=== PATIENT | female | born 1975 | race Caucasian/White ===

== ENCOUNTER 2019-11-09 19:22 | Emergency (ER) | payer OTHER ==
[~2019-11-09] VITALS: Ht 157.5 cm; Wt 74.8 kg
[~2019-11-09 19:22] MED LIST: LEVOTHROID50 MCG PO; bcp
[2019-11-09 21:01] VITALS: BP 145/81
== END 2019-11-09 21:02 | disposition home or self-care (01) ==
LOC: M.ERS 19:22
DX: S80.812A Abrasion, left lower leg, initial encounter (principal); E03.9 Hypothyroidism, unspecified; M79.7 Fibromyalgia; M06.9 Rheumatoid arthritis, unspecified; M32.9 Systemic lupus erythematosus, unspecified; W54.0XXA Bitten by dog, initial encounter; Y93.89 Activity, other specified; Y92.89 Other specified places as the place of occurrence of the external cause; Y99.8 Other external cause status

== ENCOUNTER → 2019-11-11 | Outpatient (CLI) | payer OTHER ==
[2019-11-11 12:15] VITALS: BP 118/75
--- NOTE | 2019-11-11 14:39 | NUR ---
ARRIVED AMBULATORY. MADE SELF COMFORTABLE IN RECLINER. DENIES FEVER OR ANY ADVERSE REACTION TO PRIOR INJECTION OF SAME. INJECTION COMPLETED AND TOELRATED WELL. DENIES QUESTIONS OR NEEDS AT DISCHARGE.
== END ==
LOC: M.INFUS 11:00
PROVIDERS: ATTEND Emergency Medicine Emergency Medical Services
DX: Z23 Encounter for immunization (principal); S81.852A Open bite, left lower leg, initial encounter; Z20.3 Contact with and (suspected) exposure to rabies; W54.0XXA Bitten by dog, initial encounter; Y93.89 Activity, other specified; Y92.098 Other place in other non-institutional residence as the place of occurrence of the external cause

== ENCOUNTER → 2019-11-22 | Outpatient (CLI) | payer OTHER | LOC: M.INFUS 08:30 | PROVIDERS: ATTEND Emergency Medicine Emergency Medical Services | DX: Z23 Encounter for immunization (principal); Z20.3 Contact with and (suspected) exposure to rabies; S81.852D Open bite, left lower leg, subsequent encounter ==